=== PATIENT | male | born 1960 | race American Indian/Alaskan Native ===

== ENCOUNTER 2017-11-20 00:24 | Emergency (ER) | payer SELFPAY ==
[2017-11-20 00:29] VITALS: BMI 24.4
--- NOTE | 2017-11-20 01:28 | ED PDOC ---
Arrival/HPI - General Chief Complaint: Substance Abuse Time Seen by Provider: 11/20/17 00:40 Historian: Patient - History of Present Illness Narrative History of Present Illness (Text): 11/20/17 01:28 Zack Delgado is a 57 year old male brought in by EMS for alcohol intoxication possible substance abuse. As per EMS, patient was found outside inebriated. EMS also report possible substance abuse. Patient admits to drinking alcohol tonight. Limited HPI and ROS secondary to patient's intoxication. Symptom Onset: Gradual Symptom Course: Unchanged Activities at Onset: Light Context: Street Past Medical History - Provider Review Nursing Documentation Reviewed: Yes - Infectious Disease Hx of Infectious Diseases: None Family/Social History - Physician Review Nursing Documentation Reviewed: Yes Family/Social History: Unknown Family HX Allergies/Home Meds Allergies/Adverse Reactions: Allergies No Known Allergies Allergy (Verified 11/20/17 00:30) Home Medications: Home Meds Medication Instructions Recorded Confirmed No Known Home Med 11/20/17 11/20/17 Review of Systems - Review of Systems Systems not reviewed;Unavailable: Intoxicated Respiratory: Normal. absent: SOB, Cough Cardiovascular: Normal. absent: Chest Pain Gastrointestinal: Normal. absent: Abdominal Pain, Diarrhea, Nausea, Vomiting Psychiatric: Other (+possible substance abuse) Physical Exam Vital Signs Reviewed: Yes Vital Signs Temp Pulse Resp BP Pulse Ox 11/20/17 03:22 73 14 122/92 H 95 11/20/17 02:34 74 12 125/84 96 11/20/17 00:32 98.1 F 67 18 122/68 95 11/20/17 00:26 98.8 F 82 18 128/84 99 Temperature: Afebrile Blood Pressure: Normal Pulse: Regular Respiratory Rate: Normal Appearance: Positive for: Well-Appearing, Non-Toxic, Comfortable Pain Distress: None Mental Status: Positive for: other (Drowsy but arousable) - Systems Exam Head: Present: Atraumatic, Normocephalic Pupils: Present: PERRL Extroacular Muscles: Present: EOMI Conjunctiva: Present: Normal Mouth: Present: Moist Mucous Membranes Neck: Present: Normal Range of Motion Respiratory/Chest: Present: Clear to Auscultation, Good Air Exchange. No: Respiratory Distress, Accessory Muscle Use Cardiovascular: Present: Regular Rate and Rhythm, Normal S1, S2. No: Murmurs Abdomen: No: Tenderness, Distention, Peritoneal Signs Back: Present: Normal Inspection Upper Extremity: Present: Normal Inspection. No: Cyanosis, Edema Lower Extremity: Present: Normal Inspection. No: Edema Neurological: Present: GCS=15, CN II-XII Intact, Speech Normal Skin: Present: Warm, Dry, Normal Color. No: Rashes Psychiatric: Present: Other (Drowsy but arousable) Medical Decision Making ED Course and Treatment: 11/20/17 01:28 Impression: 57 year old male brought in for alcohol intoxication, possible substance abuse tonight. Plan: -- Alcohol level -- Urine drug screen -- Reassess and disposition Progress Notes: Pt refused labs. 11/20/17 06:21 Pt awake, alert, oriented x3, ambulating with steady gait. Admits to drinking alcohol, denies any drug use. In no acute distress, clinically sober. Pt stable for d/c. - Scribe Statement The provider has reviewed the documentation as recorded by the [employer]ogie[employer]nel[employer] Mock Provider Scribe Attestation: All medical record entries made by the Scribe were at my direction and personally dictated by me. I have reviewed the chart and agree that the record accurately reflects my personal performance of the history, physical exam, medical decision making, and the department course for this patient. I have also personally directed, reviewed, and agree with the discharge instructions and disposition. Disposition/Present on Arrival - Present on Arrival Any Indicators Present on Arrival: No History of DVT/PE: No History of Uncontrolled Diabetes: No Urinary Catheter: No History of Decub. Ulcer: No History Surgical Site Infection Following: None - Disposition Have Diagnosis and Disposition been Completed?: Yes Diagnosis: Alcohol abuse Disposition: HOME/ ROUTINE Disposition Time: 06:27 Patient Plan: Discharge Condition: GOOD Discharge Instructions (ExitCare): Alcohol Abuse and Alcoholism (DC) Referrals: Alcoholics Anonymous [Outside] - Follow up with primary Forms: [employer] ([place])
[2017-11-20 06:58] VITALS: BP 128/68; PULSE 87; RESP 18; TEMP 98.6; O2SAT 96
== END 2017-11-20 06:35 | disposition home or self-care (01) ==
LOC: MERGE 00:24 → ED 00:24
DX: F10.10 Alcohol abuse, uncomplicated (principal)